=== PATIENT | female | born 1980 | race Hispanic/Latino ===

== ENCOUNTER 2018-07-11 17:46 | Outpatient (CLI) | payer MEDICAID | END 2018-07-11 20:23 | disposition home or self-care (01) | LOC: TRG 17:46 | CPT/HCPCS: 59025 ==

== ENCOUNTER 2018-07-22 07:24 | Inpatient (IN) | payer MEDICAID ==
[2018-07-22] MEDS ORDERED: BICITRA PO ONE (07:50)
[2018-07-22] MEDS ORDERED: REGLAN IV ONE (07:50)
[2018-07-22] MEDS ORDERED: PEPCID IV ONE (07:50)
[2018-07-22] MEDS ORDERED: ANCEF/STERILE WATER 2 GM/20 ML 2 GM/20 ML SYRINGE IV NR (08:00)
[2018-07-22] MEDS ORDERED: PITOCin/NS 20 UNIT/1000ML DRIP 20 UNITS/1,000 ML BAG IV SCH ×2 (08:00→12:18)
--- NOTE | 2018-07-22 08:00 | History and Physical Report ---
<JANNETHIVORY Mercy - Last Filed: 07/22/18 08:25> History of Present Illness Date of examination: 07/22/18 Date of admission: 07/22/18 07:24 Chief complaint: SROM @ 0600 - prev c/s History of present illness: EDC Confirmation: 07/30/2018 Past History : 2 Term Births: 1 Premature Births: 0 Living Children: 1 Para: 1 Mult. Births: 0 Prev : 1 Aborta: 0 Elect. Ab: 0 Spont. Ab: 0 Ectopics: 0 # 1 Delivery date: 11/29/2002 Weeks Gestation: 38 Delivery type: Hours of labor: 6 Anesthesia type: epidural Delivery location: [place] Sex: Male weight: 8-3 Name: Jaden Comments: Bloody fluid Past Medical History: Anxiety G E R D Allergies-seasonal Past Surgical History: Gastric Bypass: (2009) Bilateral Carpal Tunnel Release Tonsillectomy Nasal (2002) Family History Summary: Other family member - Has No Family History of Ovarvian Cancer - Entered On: 12/26/2017 Other family member - Has No Family History of Colon Cancer - Entered On: 12/26/2017 Other family member - Has No Family History of Breast Cancer - Entered On: 12/26/2017 Other family member - Has Family History of Prostate Cancer - Entered On: 12/26/2017 Other family member - Has Family History of Hypertension - Entered On: 12/26/2017 Other family member - Has Family History of Diabetes - Entered On: 12/26/2017 Other family member - Has Family History of Coronary Heart Disease - Entered On: 12/26/2017 Social History: Marital Status: Children: 1 Occupation: [employer] Risk Factors: Smoked Tobacco Use: Current every day smoker Cigarettes: Yes -- 1 1/2 pack(s) per day, Year started: 1997 Counseled to quit/cut down: yes Drug use: no Alcohol use: yes Drinks per day: social Dietary Counseling: pn yes Past Medical History Surgery (Non-urogynecology physician): Gastric Bypass: (2009) Bilateral Carpal Tunnel Release Tonsillectomy Nasal (2002) Abnormal PAP: negative Uterine Anomaly: negative Social Hx: Marital Status: Children: 1 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 of genital herpes: no Genetic History ADVANCED MATERNAL AGE Congenital Heart Defect: Mom: no Dad: no [place] Disease: Mom: no Dad: no Thalassemia Mom: no Dad: no Neural Tube Defect Mom: no Dad: no Down's Syndrome Mom: no Dad: no Librado-Sachs Mom: no Dad: no Sickle Cell Disease/Trait Mom: no Dad: no Hemophilia Mom: no Dad: no Muscular Dystrophy Mom: no Dad: no Cystic Fibrosis Mom: no Dad: no [place] Chorea Mom: no Dad: no Mental Retardation Mom: no Dad: no Fragile X Mom: no Dad: no Other Genetic/Chromosomal Disorder Mom: no Dad: no Child w/other defect Mom: no Dad: no Current Allergies (reviewed today): * CECLOR (Critical) * HYDROCODONE (Critical) * CIPRO (Critical) Past History Past Medical History: other (see HPI) Past Surgical History: other (see HPI) 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 (see HPI) Family/Genetic History: other (see HPI) - Obstetrical History Expected Date of Delivery: 07/30/18 Actual Gestation: 38 Week(s) 6 Day(s) : 2 Para: 1 Hx # Term Pregnancies: 1 Number of Pregnancies: 0 Spontaneous Abortions: 0 Induced : 0 Number of Living Children: 1 Medications and Allergies Allergies Allergy/AdvReac Type Severity Reaction Status Date / Time cefaclor [From Ceclor] AdvReac Rash Verified 07/22/18 07:53 Active Meds: Active Medications Citric Acid/Sodium Citrate (Bicitra) 30 ml PO ONCE ONE Stop: 07/22/18 07:51 Famotidine (Pepcid) 20 mg IV ONCE ONE Stop: 07/22/18 07:51 Cefazolin Sodium (Ancef/Sterile Water 2 Gm/20 Ml) 2 gm in 20 mls @ 80 mls/hr IV PREOP NR; Protocol Stop: 07/22/18 23:59 Lactated Ringer's (Lactated Ringers) 1,000 mls @ 2,250 mls/hr IV PREOP ANA LUISA Stop: 07/23/18 08:27 Oxytocin/Sodium Chloride (Pitocin/Ns 20 Unit/1000ml Drip) 20 units in 1,000 mls @ 0 mls/hr IV TITR ANA LUISA Metoclopramide HCl (Reglan) 10 mg IV ONCE ONE Stop: 07/22/18 07:51 Review of Systems All systems: negative - Vital Signs Vital signs: Vital Signs Pulse Pulse Ox 79 97 07/22/18 07:36 07/22/18 07:36 Temp Pulse Resp BP Pulse Ox 70 97 07/22/18 07:51 07/22/18 07:51 - Physical Exam Breasts: Positive: normal Cardiovascular: Regular rate Lungs: Positive: Clear to auscultation, Normal air movement Abdomen: Positive: normal appearance, soft Genitourinary (Female): Positive: normal external genitalia Vulva: both: normal Extremities: Positive: normal Deep Tendon Reflex Grade: Normal +2 - Obstetrical FHR: category 1 Uterine Contraction Monitor Mode: External Uterine Contraction Pattern: Irregular Uterine Tone Measurement Phase: Contraction Uterine Contraction Intensity: Mild Results All other labs normal. Assessment and Plan 37y/o arrived to hospital grossly SROM'd @ 38+6 weeks. Scheduled for repeat c/s Tuesday. Will proceed today. Pre-op orders in EMR. Dr. Larose aware. - Patient Problems (1) 38 weeks gestation of Current Visit: Yes Status: Acute (2) Previous section Current Visit: Yes Status: Acute (3) Smoker Current Visit: Yes Status: Acute (4) History of bariatric surgery Current Visit: Yes Status: Acute Plan to address problem: gastric band in place, currently deflated during (5) Anxiety Current Visit: Yes Status: Acute (6) SROM (spontaneous rupture of membranes) Current Visit: Yes Status: Acute (7) BMI 40.0-44.9, adult Current Visit: Yes Status: Acute (8) Excessive weight gain during Current Visit: Yes Status: Acute Qualifiers: Trimester: third trimester Qualified Code(s): O26.03 - Excessive weight gain in , third trimester <CHRISTOFER LAROSE D - Last Filed: 07/22/18 09:26> History of Present Illness Date of admission: 07/22/18 07:24 Medications and Allergies Active Meds: Active Medications Cefazolin Sodium (Ancef/Sterile Water 2 Gm/20 Ml) 2 gm in 20 mls @ 80 mls/hr IV PREOP NR; Protocol Stop: 07/22/18 23:59 Lactated Ringer's (Lactated Ringers) 1,000 mls @ 2,250 mls/hr IV PREOP ANA LUISA Stop: 07/23/18 08:27 Last Admin: 07/22/18 08:56 Dose: 2,250 mls/hr Documented by: Oxytocin/Sodium Chloride (Pitocin/Ns 20 Unit/1000ml Drip) 20 units in 1,000 mls @ 0 mls/hr IV TITR ANA LUISA Naloxone HCl (Narcan 0.4 Mg/1 Ml) 0.2 mg IV Q2MIN PRN PRN Reason: Res Rate </= 8 or 02 SAT < 92% Ondansetron HCl (Zofran) 4 mg IV Q8H PRN PRN Reason: Nausea And Vomiting Promethazine HCl (Phenergan) 25 mg PO Q6H PRN PRN Reason: Nausea And Vomiting Promethazine HCl (Phenergan) 25 mg AL Q6H PRN PRN Reason: Nausea And Vomiting Sodium Chloride (Sodium Chloride Flush Syringe 10 Ml) 10 ml IV PRN NR Stop: 07/22/18 23:59 - Vital Signs Vital signs: Vital Signs Pulse Pulse Ox 79 97 07/22/18 07:36 07/22/18 07:36 Temp Pulse Resp BP Pulse Ox 98.1 F 74 18 124/74 97 07/22/18 08:08 07/22/18 08:18 07/22/18 08:08 07/22/18 08:18 07/22/18 08:11 Results Result Diagrams: 07/22/18 08:05 Abnormal lab results 07/22/18 Range/Units 08:05 WBC 17.0 H (4.5-11.0) K/mm3 Seg Neuts % (Manual) 73.0 H (40.0-70.0) % Seg Neutrophils # Man 12.4 H (1.8-7.7) K/mm3 All other labs normal. Assessment and Plan - Patient Problems (1) Maternal care due to uterine scar from other previous surgery Current Visit: Yes Status: Acute Plan to address problem: Maternal care due to uterine scar from other previous surgery ([id number]) Discuss the risks of the surgery including infection, bleeding possibly heavy enough to require a blood transfusion, possible damage to bowel, bladder or ureter. Her questions were answered. Patient understands and desires to proceed
[2018-07-22 08:23] LABS: Hematocrit 38.4 % (30.3-42.9); Mean Corpuscular HGB Conc 34 % (30-34); Mean Corpuscular Volume 94 fl (79-97); Platelet Count 256 K/mm3 (140-440); Red Blood Count 4.09 M/mm3 (3.65-5.03); Red Cell Distribution Width 15.2 % (13.2-15.2)
[2018-07-22] MEDS ORDERED: PHENERGAN PR PRN (08:40)
[2018-07-22] MEDS ORDERED: NARCAN 0.4 MG/1 ML IV PRN ×2 (08:40→12:18)
[2018-07-22] MEDS ORDERED: PHENERGAN PO PRN (08:40)
[2018-07-22] MEDS ORDERED: ZOFRAN IV PRN (08:40)
[2018-07-22] MEDS: LACTATED RINGERS 1,000 ML IV SCH ×2 (08:47→08:56)
--- NOTE | 2018-07-22 08:58 | Anesthesia Consultation ---
Anesthesia Consult and Med Hx - Airway Anesthetic Teeth Evaluation: Good ROM Head & Neck: Adequate Mental/Hyoid Distance: Adequate Mallampati Class: Class II Intubation Access Assessment: Good - Pulmonary Exam CTA: Yes - Cardiac Exam Cardiac Exam: RRR - Pre-Operative Health Status ASA Pre-Surgery Classification: ASA2 Proposed Anesthetic Plan: Spinal - Pulmonary Hx Smoking: Yes Hx Asthma: No Hx Respiratory Symptoms: No SOB: No COPD: No Home Oxygen Therapy: No Hx Pneumonia: No Hx Sleep Apnea: No - Cardiovascular System Hx Hypertension: Yes (prior to lapband) Hx Coronary Artery Disease: No Hx Heart Attack/AMI: No Hx Angina: No Hx Percutaneous Transluminal Coronary Angioplasty (PTCA): No Hx Cardia Arrhythmia: No Hx Pacemaker: No Hx Internal Defibrillator: No - Central Nervous System Hx Seizures: No CVA: No Hx Psychiatric Problems: Yes (anxiety and depression) - Endocrine Hx Renal Disease: No Hx End Stage Renal Disease: No Hx Cirrhosis: No Hx Liver Disease: No Hx Insulin Dependent Diabetes: No Hx Thyroid Disease: No Hx Hypothyroidism: No Hx Hyperthyroidism: No - Hematic Hx Anemia: Yes Hx Sickle Cell Disease: No - Other Systems Hx Alcohol Use: No - Additional Comments Anesthesia Medical History Comments: lap band surgery and previous c/section
[2018-07-22] MEDS ORDERED: SODIUM CHLORIDE FLUSH SYRINGE 10 ML IV NR (09:00)
[2018-07-22] MEDS ORDERED: ZOFRAN ONE (09:05)
[2018-07-22] MEDS ORDERED: NEO SYNEPHRINE/NS Syringe(OR USE) IV ONE ×2 (09:06→10:09)
[2018-07-22] MEDS ORDERED: SUBLIMAZE ONE (09:12)
[2018-07-22 09:19] LABS: Anisocytosis 1+; Basophils % (Manual) 0 % (0.0-1.8); Eosinophils % (Manual) 0 % (0.0-4.3); Promyelocytes # (Manual) 0.2 K/mm3; Total Cells Counted 100
[2018-07-22 09:20] LABS: Macrocytosis 1+; Ovalocytes Few; Platelet Estimate Consistent w Auto; Poikilocytosis Few; Tear Drop Cells Few
[2018-07-22] MEDS ORDERED: NACL 0.9% IR ONE (09:30)
[2018-07-22] MEDS ORDERED: WATER FOR IRRIG STERILE IR ONE (09:30)
[2018-07-22] MEDS ORDERED: TORADOL ONE (10:06)
--- NOTE | 2018-07-22 11:21 | Operative Report ---
Operative Report Operative Report: Date: 07/22/2018 Preoperative diagnosis: 1. Intrauterine at 38 weeks 2. Previous delivery desires repeat delivery 3. Spontaneous rupture of membranes 4. Body mass index 43 kg/m 5. Advanced maternal age 6. Smoker Postoperative diagnosis: 1. Intrauterine at 38 weeks 2. Previous delivery desires repeat delivery 3. Spontaneous rupture of membranes 4. Body mass index 43 kg/m 5. Advanced maternal age 6. Smoker Procedure: Low uterine transverse incision for delivery Surgeon: Jaelyn Larose MD Substation Operator Automatic: Marge Fritz CNM Anesthesia: Epidural Anesthesiologist: [] Estimated blood loss: 500 mL Urine out: 150 mL Findings: Live born male . Weight 6 lbs. 13 oz. Apgars 9 at 1 minute and 9 at 5 minutes. Uterus grossly normal, tubes grossly normal, ovaries grossly normal. Procedure: After risk, benefits, complications, consequences and alternatives for this procedure were discussed with patient and consents were reviewed and signed, she was taken to the OR where epidural anesthesia was placed. She was then placed in the left lateral tilt position, and prepped and draped in the usual sterile fashion. Timeout was performed, and an appropriate level of anesthesia was noted, a Pfannenstiel incision was made and extended to the fascia which was incised and extended in the lateral directions. The overlying fascia was sharply dissected away from the underlying rectus muscles in the superior and inferior directions. The midline was entered bluntly. The vesicouterine fold was incised and with blunt dissection the bladder flap was created. A transverse incision was made in the lower uterine segment and extended in superiolateral direction with finger fractionation. Clear fluid was noted. The infant was delivered from cephalic OP position. Mouth and nose were bulb suctioned. Spontaneous cry and excellent tone were noted. Cord was doubly clamped and cut. The was given to /resuscitation team present. The placenta was manually extracted. The uterus was then exteriorized and cleared of any further products of conception or placental tissue. The incision was reapproximated using 0 Vicryl in a running interlocking stitch. Grossly normal uterus, tubes and ovaries were noted. Once hemostasis was noted, the uterus was allowed back into the pelvic cavity. The pelvis was irrigated with warm normal saline. Again hemostasis was noted . Then attention was turned to the rectus muscles. The rectus muscles reapproximated using 0 Vicryl in a simple interrupted stitch x 2. Once hemostasis was noted, the fascia was reapproximated using 0 Vicryl running stitch fashion. Once hemostasis was noted skin incision was reapproximated using 4-0 Vicryl on a Raudel needle in a subcuticular manner. Counts were correct 3. Patient tolerated procedure well state recovery room in stable condition.
[2018-07-22] MEDS ORDERED: TUCKS PAD TP PRN (12:18)
[2018-07-22] MEDS ORDERED: MILK OF MAGNESIA PO PRN (12:18)
[2018-07-22] MEDS ORDERED: SODIUM CHLORIDE FLUSH SYRINGE 10 ML IV SCH (12:18)
[2018-07-22] MEDS ORDERED: MORPHINE IV PRN (12:18)
[2018-07-22] MEDS ORDERED: LANSINOH TP PRN (12:18)
[2018-07-22] MEDS ORDERED: TYLENOL PR PRN (12:18)
[2018-07-22] MEDS ORDERED: TYLENOL PO PRN (12:18)
[2018-07-22] MEDS ORDERED: D5LR 1,000 ML IV SCH (12:18)
[2018-07-22] MEDS: MORPHINE IV PRN ×2 (13:02→19:45)
[2018-07-22] MEDS: CLEOCIN 600 MG/50 mL 600 MG/50 ML BAG IV SCH ×2 (14:57→23:24)
[2018-07-22] MEDS: GENTAMICIN/NS 100 MG/100 ML 100 MG/100 ML BAG IV SCH ×2 (15:55→22:37)
[2018-07-22] MEDS ORDERED: TORADOL IV PRN (16:00)
[2018-07-22] MEDS: IBUPROFEN PO PRN (22:37)
[2018-07-22 23:07] LABS: Hematocrit 29.5 % (30.3-42.9); Hemoglobin 9.9 gm/dl (10.1-14.3)
[2018-07-23] MEDS: PERCOCET 5/325 PO PRN ×4 (01:16→21:31)
[2018-07-23] MEDS: MYLICON PO PRN ×2 (01:16→13:33)
[2018-07-23] MEDS: IBUPROFEN PO PRN ×2 (05:49→15:19)
[2018-07-23] MEDS ORDERED: BOOSTRIX IM ONE (06:00)
--- NOTE | 2018-07-23 07:52 | Progress Note ---
Assessment and Plan patient doing well, c/o gas pain. Fundus firm, lochia scant, VSSAF, H&H 9.9/29.5, incision dressed - dressing dry and intact. RN to remove after shower today. encouraged advance in diet and activity as tolerated. continue postop pathway. - Patient Problems (1) Smoker Current Visit: Yes Status: Acute (2) History of bariatric surgery Current Visit: Yes Status: Acute (3) Anxiety Current Visit: Yes Status: Acute (4) BMI 40.0-44.9, adult Current Visit: Yes Status: Acute (5) delivery delivered Current Visit: Yes Status: Acute Subjective - Subjective Date of service: 07/23/18 Principal diagnosis: postop day #1 s/p repeat c/s Interval history: EDC Confirmation: 07/30/2018 Past History : 2 Term Births: 1 Premature Births: 0 Living Children: 1 Para: 1 Mult. Births: 0 Prev : 1 Aborta: 0 Elect. Ab: 0 Spont. Ab: 0 Ectopics: 0 # 1 Delivery date: 11/29/2002 Weeks Gestation: 38 Delivery type: Hours of labor: 6 Anesthesia type: epidural Delivery location: [place] Inf[place] Sex: Male weight: 8-3 Name: Jaden Comments: Bloody fluid Past Medical History: Anxiety G E R D Allergies-seasonal Past Surgical History: Gastric Bypass: (2009) Bilateral Carpal Tunnel Release Tonsillectomy Nasal (2002) Family History Summary: Other family member - Has No Family History of Ovarvian Cancer - Entered On: 12/26/2017 Other family member - Has No Family History of Colon Cancer - Entered On: 12/26/2017 Other family member - Has No Family History of Breast Cancer - Entered On: 12/26/2017 Other family member - Has Family History of Prostate Cancer - Entered On: 12/26/2017 Other family member - Has Family History of Hypertension - Entered On: 12/26/2017 Other family member - Has Family History of Diabetes - Entered On: 12/26/2017 Other family member - Has Family History of Coronary Heart Disease - Entered On: 12/26/2017 Social History: Marital Status: Children: 1 Occupation: [employer] Risk Factors: Smoked Tobacco Use: Current every day smoker Cigarettes: Yes -- 1 1/2 pack(s) per day, Year started: 1997 Counseled to quit/cut down: yes Drug use: no Alcohol use: yes Drinks per day: social Dietary Counseling: pn yes Past Medical History Surgery (Non-nurse obgyn): Gastric Bypass: (2009) Bilateral Carpal Tunnel Release Tonsillectomy Nasal (2002) Abnormal PAP: negative Uterine Anomaly: negative Social Hx: Marital Status: Children: 1 Occupation: [employer] Infection History Hx of STD: none Personal hx. of genital herpes: no Genetic History ADVANCED MATERNAL AGE Congenital Heart Defect: Mom: no Dad: no [place] Disease: Mom: no Dad: no Thalassemia Mom: no Dad: no Neural Tube Defect Mom: no Dad: no Down's Syndrome Mom: no Dad: no Librado-Sachs Mom: no Dad: no Sickle Cell Disease/Trait Mom: no Dad: no Hemophilia Mom: no Dad: no Muscular Dystrophy Mom: no Dad: no Cystic Fibrosis Mom: no Dad: no [place] Chorea Mom: no Dad: no Mental Retardation Mom: no Dad: no Fragile X Mom: no Dad: no Other Genetic/Chromosomal Disorder Mom: no Dad: no Child w/other defect Mom: no Dad: no Current Allergies (reviewed today): * CECLOR (Critical) * HYDROCODONE (Critical) * CIPRO (Critical) Patient reports: appetite normal, voiding normally, pain well controlled, flatus, ambulating normally, no dizzy ambulation, no nauseated [place]: doing well, nursing well Objective - Vital Signs Latest vital signs: Vital Signs Temp Pulse Resp BP BP Pulse Ox 07/22/18 21:10 98.3 F 92 H 18 124/74 97 07/22/18 16:32 97.2 F L 83 18 111/73 99 07/22/18 11:59 97.3 F L 64 18 118/63 100 07/22/18 11:35 98 F 59 L 16 120/66 99 07/22/18 11:25 63 20 115/58 98 07/22/18 11:10 69 20 121/53 98 07/22/18 10:55 60 20 122/66 99 07/22/18 10:50 74 16 125/56 99 07/22/18 10:40 66 16 121/57 99 07/22/18 10:36 98.3 F 61 16 116/63 99 07/22/18 08:18 74 124/74 07/22/18 08:11 71 97 07/22/18 08:08 98.1 F 74 18 124/74 97 07/22/18 08:06 81 97 07/22/18 08:01 77 97 07/22/18 07:56 76 96 07/22/18 07:51 70 97 Intake and Output 07/22/18 07/22/18 07/23/18 15:59 23:59 07:59 Intake Total 2187.5 700 Output Total 200 1200 2800 Balance 1987.5 -500 -2800 Intake: IV 2187.5 100 CLEOCIN 600 MG/50 mL 600 50 mg In 50 ml @ 100 mls/hr IV Q8H ANA LUISA Rx#:[id number] GARAMYCIN/NS 100 MG/100 100 ML 100 mg In 100 ml @ 200 mls/hr IV Q8H ANA LUISA Rx#: [id number] Lactated Ringers 1,000 ml 337.5 @ 2250 mls/hr IV PREOP ANA LUISA Rx#:[id number] Oral 0 480 Intake, Free Water 120 Output: Urine 200 1200 2800 Indwelling Catheter 1200 1800 Void 1000 Other: Total, Intake Amount 0 480 Total, Output Amount 1200 300 Weight 112.283 kg Estimated Blood Loss 500 - Exam Breasts: Present: normal, Cardiovascular: Present: Regular rate Lungs: Present: Clear to auscultation, Normal air movement Abdomen: Present: normal appearance, soft Vulva: both: normal Uterus: Present: normal, firm, fundal height at umbilicus Extremities: Present: normal Incision: Present: normal, dry, dressed - Labs Labs: Abnormal lab results 07/22/18 07/22/18 Range/Units 08:05 22:33 WBC 17.0 H (4.5-11.0) K/mm3 Hgb 9.9 L D (10.1-14.3) gm/dl Hct 29.5 L D (30.3-42.9) % Seg Neuts % (Manual) 73.0 H (40.0-70.0) % Seg Neutrophils # Man 12.4 H (1.8-7.7) K/mm3
[2018-07-24] MEDS: IBUPROFEN PO PRN ×2 (01:59→10:21)
[2018-07-24] MEDS: PERCOCET 5/325 PO PRN (04:01)
[2018-07-24] MEDS ORDERED: BOOSTRIX IM ONE (06:00)
[2018-07-24 08:45] VITALS: BP 111/68
--- NOTE | 2018-07-24 09:45 | Discharge Summary ---
Providers - Providers Date of Admission: 07/22/18 07:24 Date of discharge: 07/24/18 (patient desires discharge today) Attending physician: CHRISTOFER MANCIA 07/22/18 12:18 Consult to Manager Field Services [CONS] Routine Reason For Exam: Primary care physician: CHRISTOFER MANCIA Hospitalization Reason for admission: SROM, repeat c/s Condition: Good Pertinent studies: Post delivery H&H 9.9/29.5 Procedures: repeat c/s Hospital course: uncomplicated c/s and course Disposition: DC-01 TO HOME OR SELFCARE Core Measure Documentation - Palliative Care Palliative Care/ Comfort Measures: Not Applicable - Core Measures Any of the following diagnoses?: none Exam - Constitutional Vitals: Temp Pulse Resp BP Pulse Ox 98.2 F 81 18 111/68 99 07/24/18 07:51 07/24/18 07:51 07/24/18 07:51 07/24/18 07:51 07/24/18 07:51 General appearance: Present: no acute distress, well-nourished - EENT Eyes: Present: PERRL ENT: hearing intact, clear oral mucosa - Neck Neck: Present: supple, normal ROM - Respiratory Respiratory effort: normal Respiratory: bilateral: CTA - Cardiovascular Rhythm: regular Heart Sounds: Present: S1 & S2. Absent: rub, click - Extremities Extremities: pulses symmetrical, No edema Peripheral Pulses: within normal limits - Abdominal General gastrointestinal: Present: soft, non-tender, non-distended, normal bowel sounds Female genitourinary: Present: normal - Integumentary Integumentary: Present: clear, warm, dry - Musculoskeletal Musculoskeletal: gait normal, strength equal bilaterally - Psychiatric Psychiatric: appropriate mood/affect, intact judgment & insight - Neurologic Neurologic: CNII-XII intact, moves all extremities - Additional findings Additional findings: Fundus firm, ML, U/2. Vaginal bleeding scant. Incision is clean, intact, no bleeding or drainage noted, no signs of infection. Incision area is moist. Instructed patient to keep area dry, matty pad placed to area to wick moisture. Patient instructed on hygiene measures to decrease r/f infection. Instructed to call with any s/s of infection. Patient reports breast feeding is going well, no complaints. VSSAF. Patient desires Depo provera for contraception. Order placed to be given prior to discharge today. Plan Activity: no restrictions, advance as tolerated Diet: regular Wound: open to air, keep clean and dry Follow up with: CHRISTOFER MANCIA MD [Primary Care Provider] - 7 Days (Congratulations! Please call [phone] to schedule your son's circumcision appointment in 1 week. Bring EMLA cream to appointment and await further instructions for use. Please schedule your incision check appointment for 1 week. Call with any questions or concerns. ) Forms: [facility] Discharge Summary Prescriptions: Ibuprofen [Motrin 800 MG tab] 800 mg PO TID PRN #30 tablet PRN Reason: Pain Lidocain2.5%/Prilocai2.5% [Emla] 5 gm TP ONCE #1 tube oxyCODONE /ACETAMINOPHEN [Percocet 5/325 mg] 1 - 2 tab PO Q4HR PRN #30 tablet PRN Reason: Pain
[2018-07-24] MEDS ORDERED: DEPO-PROVERA (CONTRACEPTION) IM ONE (12:00)
== END 2018-07-24 12:51 | disposition home or self-care (01) | DRG 765 ==
LOC: APU 07:24 → OB 12:10
PROVIDERS: ADMIT Obstetrics & Gynecology; ATTEND Obstetrics & Gynecology
PROC: 10D00Z1 Extraction of Products of Conception, Low, Open Approach (ICD-10-PCS; principal; 2018-07-22)
DX: O34.211 Maternal care for low transverse scar from previous cesarean delivery (principal); O10.92 Unspecified pre-existing hypertension complicating childbirth; O99.334 Smoking (tobacco) complicating childbirth; O99.344 Other mental disorders complicating childbirth; F41.8 Other specified anxiety disorders; O99.844 Bariatric surgery status complicating childbirth; F17.210 Nicotine dependence, cigarettes, uncomplicated; O99.62 Diseases of the digestive system complicating childbirth; K21.9 Gastro-esophageal reflux disease without esophagitis; O26.03 Excessive weight gain in pregnancy, third trimester; Z80.42 Family history of malignant neoplasm of prostate; Z82.49 Family history of ischemic heart disease and other diseases of the circulatory system; Z83.3 Family history of diabetes mellitus; Z3A.38 38 weeks gestation of pregnancy; Z37.0 Single live birth; O09.523 Supervision of elderly multigravida, third trimester; Z88.5 Allergy status to narcotic agent
CPT/HCPCS: 36415; 85007; 85014; 85018; 85025; 86592; 86850; 86900; 86901; 88305; 88307; 90715; G0378; A6250; J0690; J1050; J1580; J1885; J2270; J2370; J2405; J2590; J2765; J3010; J7120; J7121